=== PATIENT | male | born 2000 | race African-American/Black ===

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

== ENCOUNTER 2018-07-12 12:04 | Emergency (ER) | payer OTHER ==
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
[2018-07-12] MEDS ORDERED: ACETAMINOPHEN 325 MG TABLET PO ONE (13:38)
[2018-07-12 14:04] VITALS: BP 126/70
== END 2018-07-12 14:04 | disposition home or self-care (01) ==
LOC: ER 12:04
DX: S01.111A Laceration without foreign body of right eyelid and periocular area, initial encounter (principal); R51 Headache; R42 Dizziness and giddiness; W20.8XXA Other cause of strike by thrown, projected or falling object, initial encounter
CPT/HCPCS: 99283

== ENCOUNTER 2018-07-15 14:09 | Emergency (ER) | payer OTHER ==
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
[2018-07-15] MEDS ORDERED: KETOROLAC TROMETHAMINE 0.45% 4 DROP/0.4 ML DROPERETTE OD ONE (16:13)
[2018-07-15 16:26] VITALS: BP 132/64
== END 2018-07-15 16:59 | disposition home or self-care (01) ==
LOC: ER 14:09
DX: S05.31XA Ocular laceration without prolapse or loss of intraocular tissue, right eye, initial encounter (principal); H57.11 Ocular pain, right eye; H53.141 Visual discomfort, right eye; W20.8XXA Other cause of strike by thrown, projected or falling object, initial encounter; Z87.891 Personal history of nicotine dependence; F12.10 Cannabis abuse, uncomplicated
CPT/HCPCS: 99282

== ENCOUNTER 2019-02-06 14:06 | Emergency (ER) | payer OTHER ==
[2019-02-06 14:16] VITALS: BP 141/58
[2019-02-06] MEDS ORDERED: LIDOCAINE 1% INJ-PF (10 MG/ML) 30 ML SDV INJ ONE (14:35)
--- NOTE | 2019-02-06 14:55 | ER Document Report ---
HPI - HPI Patient complains to provider of: Laceration Time Seen by Provider: 02/06/19 14:33 Onset: Just prior to arrival Quality of pain: Achy Pain Level: 2 Context: 18-year-old male presents to the emergency department with complaints of laceration to his left elbow. He reports he was cleaning a car when he hit his elbow on a razor. He reports his tetanus up-to-date.. Has full range of motion good radial pulse cap refill less than 2 seconds. Associated Symptoms: None Exacerbated by: Denies Relieved by: Denies Similar symptoms previously: No Recently seen / treated by doctor: No - REPRODUCTIVE Reproductive: DENIES: : Past Medical History - General Information source: Patient - Social History Smoking Status: Current Some Day Smoker Chew tobacco use (# tins/day): No Frequency of alcohol use: None Drug Abuse: None Occupation: details cars Family History: Reviewed & Not Pertinent Patient has suicidal ideation: No Patient has homicidal ideation: No Renal/ Medical History: Denies: Hx Peritoneal Dialysis Musculoskeletal Medical History: Reports Hx Musculoskeletal Trauma Past Surgical History: Reports: Hx Abdominal Surgery - hernia 2013 and when he was younger., Hx Inguinal Hernia, Hx Umbilical Hernia - Immunizations Immunizations up to date: Yes Vertical Provider Document - CONSTITUTIONAL Agree With Documented VS: Yes Exam Limitations: No Limitations General Appearance: WD/WN, No Apparent Distress - INFECTION CONTROL TRAVEL OUTSIDE OF THE [place] IN LAST 30 DAYS: No - HEENT HEENT: Atraumatic, Normocephalic - NECK Neck: Supple - RESPIRATORY Respiratory: No Respiratory Distress - CARDIOVASCULAR Cardiovascular: Regular Rate - MUSCULOSKELETAL/EXTREMETIES Musculoskeletal/Extremeties: MAEW, FROM, Tender - NEURO Level of Consciousness: Awake, Alert, Appropriate Motor/Sensory: No Motor Deficit - DERM Integumentary: Warm, Dry, Laceration - Superficial laceration to the left elbow approximately 2 cm no active bleeding Course - Re-evaluation Re-evalutation: 02/06/19 14:53 Patient presents with elbow laceration reports his tetanus is up-to-date. - Vital Signs Vital signs: Temp Pulse Resp BP Pulse Ox 98.1 F 65 17 141/58 H 98 02/06/19 14:14 02/06/19 14:14 02/06/19 14:14 02/06/19 14:14 02/06/19 14:14 Procedures - Laceration/Wound Repair Left Elbow Time completed: 15:17 Wound length (cm): 2 Wound's Depth, Shape: Superficial Laceration pre-procedure: Sterile drapes applied, Shur-Clens applied Anesthetic type: 1% Lidocaine Volume Anesthetic (mLs): 2 Wound explored: Clean Irrigated w/ Saline (mLs): 250 Wound Repaired With: Sutures Suture Size/Type: 5:0, Nylon Number of Sutures: 4 Layer Closure?: No Post-procedure NV exam normal: Yes Complications: No Adult Front & Back picture: 1 - 4 cm laceration noted area cleaned really well for sutures applied patient tolerated procedure well Discharge - Discharge Clinical Impression: Elbow laceration with suture repair Condition: Stable Disposition: HOME, SELF-CARE Instructions: Laceration Care ([facility]), Soap Cleansing ([facility]) Additional Instructions: *You have been treated for a laceration with suture repair *Monitor the site for signs of infection such as increasing pain, redness, swelling, warmth *Keep the area clean, keep it wrapped while you are working *Return to the emergency department and 14 days for suture removal *Return to the emergency department earlier for signs of infection, concerns, needs Monitor your blood pressure. Your blood pressure was elevated today. This may be because you were anxious, in pain or because you need medication. It is imp ortant to follow up with your primary care provider for full evaluation. Forms: Elevated Blood Pressure, Return to Work
== END 2019-02-06 15:34 | disposition home or self-care (01) ==
LOC: ER 14:06
DX: S51.012A Laceration without foreign body of left elbow, initial encounter (principal); F17.200 Nicotine dependence, unspecified, uncomplicated; W26.0XXA Contact with knife, initial encounter; Y99.0 Civilian activity done for income or pay
CPT/HCPCS: 12001; 99283; J3490

== ENCOUNTER 2019-08-12 09:40 | Emergency (ER) | payer OTHER ==
[2019-08-12 09:44] VITALS: BP 152/80
--- NOTE | 2019-08-12 10:43 | RADIOLOGY REPORT (SQ) ---
EXAM DESCRIPTION: HAND RIGHT 3 VIEWS IMAGES COMPLETED DATE/TIME: 08/12/2019 10:32 am REASON FOR STUDY: pain COMPARISON: None. EXAM PARAMETERS: NUMBER OF VIEWS: Three views. TECHNIQUE: AP, lateral and oblique radiographic images acquired of the right hand. LIMITATIONS: None. FINDINGS: MINERALIZATION: Normal. BONES: No acute fracture or dislocation. No worrisome bone lesions. JOINTS: No effusions. SOFT TISSUES: No soft tissue swelling. No foreign body. OTHER: No other significant finding. IMPRESSION: NEGATIVE STUDY OF THE RIGHT HAND. NO RADIOGRAPHIC EVIDENCE OF ACUTE INJURY. TECHNICAL DOCUMENTATION: JOB ID: [id number] [employer]- All Rights Reserved Reading location - IP/workstation name: [email or web address]
[2019-08-12] MEDS ORDERED: IBUPROFEN 800 MG TABLET PO ONE (10:50)
--- NOTE | 2019-08-12 10:57 | ER Document Report ---
HPI - HPI Patient complains to provider of: Right hand injury Time Seen by Provider: 08/12/19 10:46 Onset: Yesterday Onset/Duration: Sudden Quality of pain: Achy Pain Level: 3 Context: Patient states that he punched a wall with his right hand. Patient complains of tenderness to the right third metacarpal, patient is left-hand dominant. Injury occurred last night. Associated Symptoms: denies: Fever, Nausea, Vomiting Exacerbated by: Movement Relieved by: Denies Similar symptoms previously: No Recently seen / treated by doctor: No - ROS ROS below otherwise negative: Yes Systems Reviewed and Negative: Yes All other systems reviewed and negative - NEURO Neurology: DENIES: Weakness - MUSCULOSKELETAL Musculoskeletal: REPORTS: Extremity pain, Swelling - DERM Skin Color: Normal Skin Problems: None Past Medical History - General Information source: Patient - Social History Smoking Status: Never Smoker Frequency of alcohol use: None Drug Abuse: None Occupation: Moving and storage Family History: Reviewed & Not Pertinent - Medical History Medical History: Negative Renal/ Medical History: Denies: Hx Peritoneal Dialysis Musculoskeletal Medical History: Reports Hx Musculoskeletal Trauma Past Surgical History: Reports: Hx Abdominal Surgery - hernia 2013 and when he was younger., Hx Inguinal Hernia, Hx Umbilical Hernia - Immunizations Immunizations up to date: Yes Vertical Provider Document - CONSTITUTIONAL Agree With Documented VS: Yes Exam Limitations: No Limitations General Appearance: WD/WN, No Apparent Distress - INFECTION CONTROL TRAVEL OUTSIDE OF THE [place] IN LAST 30 DAYS: No - HEENT HEENT: Atraumatic, Normocephalic - NECK Neck: Normal Inspection - RESPIRATORY Respiratory: Breath Sounds Normal, No Respiratory Distress - CARDIOVASCULAR Cardiovascular: Regular Rate, Regular Rhythm Pulses: Normal: Radial - MUSCULOSKELETAL/EXTREMETIES Musculoskeletal/Extremeties: MAEW, FROM, Tender - Right third MCP joint tenderness with 1+ edema, no tendon deficit, No Edema. negative: Eccymosis - NEURO Level of Consciousness: Awake, Alert, Appropriate Motor/Sensory: No Motor Deficit - DERM Integumentary: Warm, Dry, No Rash Course - Re-evaluation Re-evalutation: 08/12/19 10:55 No fracture noted on x-ray, will immobilize and refer to orthopedics for any persistent pain or problems - Vital Signs Vital signs: Temp Pulse Resp BP Pulse Ox 98.8 F 86 16 152/80 H 98 08/12/19 09:43 08/12/19 09:43 08/12/19 09:43 08/12/19 09:43 08/12/19 09:43 - Diagnostic Test Radiology reviewed: Image reviewed, Reports reviewed Procedures - Immobilization Right Hand Pre-Proc Neuro Vasc Exam: Normal Immobilizer type: Lewis wrap Performed by: PCT Post-Proc Neuro Vasc Exam: Normal Alignment checked and good: Yes Discharge - Discharge Clinical Impression: Sprain of hand, right Qualifiers: Encounter type: initial encounter Qualified Code(s): S63.91XA - Sprain of unspecified part of right wrist and hand, initial encounter Condition: Stable Disposition: HOME, SELF-CARE Instructions: Acetaminophen, Lewis Wrap ([facility]), Ice & Elevation ([facility]), Sprain ([facility]) Additional Instructions: Return immediately for any new or worsening symptoms Followup with your primary care provider, call tomorrow to make a followup appointment Follow-up with orthopedics for any persistent pain or problems Lewis wrap for the next 4 to 5 days and then removed. Perform gentle range of motion exercises daily Prescriptions: Naproxen [Naprosyn 250 Nmg Tablet] 1 tab PO BID #14 tablet Forms: Return to Work Referrals: JAYLAN BRITTON DO [ACTIVE STAFF] - Follow up as needed
== END 2019-08-12 11:01 | disposition home or self-care (01) ==
LOC: ER 09:40
DX: S63.91XA Sprain of unspecified part of right wrist and hand, initial encounter (principal); W22.09XA Striking against other stationary object, initial encounter
CPT/HCPCS: 99283

== ENCOUNTER 2019-08-14 11:35 | Emergency (ER) | payer OTHER ==
[2019-08-14 11:41] VITALS: BP 158/65
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
== END 2019-08-14 12:00 | disposition home or self-care (01) ==
LOC: ER 11:35
DX: S63.91XA Sprain of unspecified part of right wrist and hand, initial encounter (principal); Y04.0XXA Assault by unarmed brawl or fight, initial encounter
CPT/HCPCS: 99282